=== PATIENT | male | born 2000 | race Caucasian/White ===

== ENCOUNTER 2020-01-15 10:31 | Outpatient (CLI) | payer SELFPAY | END 2020-01-15 10:32 | disposition EMS.NT | LOC: EMS 10:31 | PROVIDERS: ATTEND Surgery | DX: F41.9 Anxiety disorder, unspecified (principal) ==

== ENCOUNTER 2020-03-14 18:12 | Emergency (ER) | payer OTHER ==
[2020-03-14 18:22] VITALS: BP 143/92
--- NOTE | 2020-03-14 19:04 | XRAY Report ---
PROCEDURE: Foot 2 View LT INDICATIONS: TRAUMA TECHNIQUE: 2 views of the foot were acquired. COMPARISON: None FINDINGS: Bones: No fractures or dislocations. No suspicious bony lesions. Soft tissues: No tibiotalar joint effusion. Achilles tendon appears normal. IMPRESSION: No acute fracture. No osseous lesion. If symptoms and/or clinical suspicion for pathology continue, f urther assessment with repeat plain films, or advanced imaging (e.g., CT, MRI, or bone scan) is recom mended for further assessment. Reviewed by: Nick Prater MD on 03/14/2020 7:02 PM PST Approved by: Nick Prater MD on 03/14/2020 7:02 PM PST Station ID: [id number]
--- NOTE | 2020-03-14 19:44 | ED Physician Documentation ---
History of Present Illness - Stated complaint Stated Complaint: LT TOE INJ - Chief complaint Chief Complaint: Trauma Ext - Additonal information Additional information: 19-year-old male presents to the emergency department for evaluation of acute toe pain. He was working out on a punching bag and was kicking of the bag as well however after the fourth or fifth Cook he accidentally hit a chair nearby. He has pain in the distal index middle and ring toes. No swelling or deformity but difficulty bearing weight. No history of previous injury to this foot Review of Systems Constitutional: reports: Reviewed and negative Ears: reports: Reviewed and negative Nose: reports: Reviewed and negative Throat: reports: Reviewed and negative Respiratory: reports: Reviewed and negative GI: reports: Reviewed and negative : reports: Reviewed and negative Skin: reports: Reviewed and negative Musculoskeletal: reports: Extremity pain (left foot) Neurologic: reports: Reviewed and negative PD PAST MEDICAL HISTORY - Past Medical History Past Medical History: No - Past Surgical History Past Surgical History: No - Present Medications Home Medications: Ambulatory Orders Medication Instructions Recorded Confirmed Ibuprofen [Motrin] 600 mg PO Q6H PRN #30 tab 03/14/20 - Allergies Allergies/Adverse Reactions: Allergies Allergy/AdvReac Type Severity Reaction Status Date / Time No Known Drug Allergies Allergy Verified 03/14/20 18:19 - Social History Does the pt smoke?: No Smoking Status: Never smoker Does the pt drink ETOH?: Yes Does the pt have substance abuse?: No - Immunizations Immunizations are current?: Yes - POLST Patient has POLST: No PD ED PE EXPANDED - Extremities Extremities: Left foot (Tenderness in the phalanx of the index middle and ring toes without deformity or swelling. Patient able to bear nearly full weight on the left foot. 2+ distal DP pulse.) Results - Vitals Vitals: Vital Signs - 24 hr 03/14/20 18:19 Temperature 36.5 C Heart Rate 78 Respiratory 16 Rate Blood Pressure 143/92 H O2 Saturation 96 Oxygen O2 Source Room air - Rads (name of study) left foot Radiology: Prelim report reviewed, Final report received PD MEDICAL DECISION MAKING - ED course Complexity details: reviewed results, re-evaluated patient ED course: 19-year-old male presents the emergency department for evaluation of acute left foot pain. He accidentally kicked a chair when working out with his punching bag. He has pain in the index, middle and ring toes without acute deformity. Able to bear nearly full weight. X-ray does not show acute fracture or dislocation. At this time I favor contusion versus occult fracture. Patient will be recommended to take ibuprofen or Tylenol for pain and to ice the foot. Return to the emergency department if not markedly better in 7 to 10 days for repeat imaging. Departure - Departure Disposition: 01 Home, Self Care Clinical Impression: Left foot pain Condition: Stable Record reviewed to determine appropriate education?: Yes Instructions: ED Contusion Lower Ext Prescriptions: Ibuprofen [Motrin] 600 mg PO Q6H PRN #30 tab PRN Reason: Pain Comments: You were seen in the emergency department for your foot and toe pain after accidentally kicking a chair while working out with your punching bag. The x- ray does not show any broken bones. At this time you likely have a contusion or bruising in the soft tissues. This typically gets better over 7 to 10 days. I do recommend that you ice the foot where it is painful. I would also recommend that you take ibuprofen for discomfort. If pain not markedly better in 7 to 10 days your foot should be flavia-rayed to rule out any occult fractures.
== END 2020-03-14 19:51 | disposition home or self-care (01) ==
LOC: ED 18:12
DX: M79.675 Pain in left toe(s) (principal); W22.03XA Walked into furniture, initial encounter; Y93.A9 Activity, other involving cardiorespiratory exercise
CPT/HCPCS: 99281; 99283

== ENCOUNTER 2020-11-06 17:25 | Emergency (ER) | payer OTHER ==
[2020-11-06 17:44] VITALS: BP 143/91
--- NOTE | 2020-11-06 17:47 | ED Physician Documentation ---
History of Present Illness - Stated complaint Stated Complaint: DOG BITE - Chief complaint Chief Complaint: Laceration - History obtained from History obtained from: Patient - Additonal information Additional information: Pt was out running when he was bit by his neighbors small dog. He was bit on the left buttocks and left index finger and both thighs. Dog is fully vaccinated. Pt unsure of last td. Review of Systems Ten Systems: 10 systems reviewed and negative Constitutional: reports: Reviewed and negative Throat: reports: Reviewed and negative Cardiac: reports: Reviewed and negative Respiratory: reports: Reviewed and negative : reports: Reviewed and negative Skin: reports: Bite / sting Musculoskeletal: reports: Reviewed and negative Neurologic: reports: Reviewed and negative Psychiatric: reports: Reviewed and negative Endocrine: reports: Reviewed and negative Immunocompromised: reports: Reviewed and negative PD PAST MEDICAL HISTORY - Past Surgical History Past Surgical History: No - Present Medications Home Medications: Ambulatory Orders Medication Instructions Recorded Confirmed Ibuprofen [Motrin] 600 mg PO Q6H PRN #30 tab 03/14/20 - Allergies Allergies/Adverse Reactions: Allergies Allergy/AdvReac Type Severity Reaction Status Date / Time No Known Drug Allergies Allergy Verified 11/06/20 17:44 - Social History Does the pt smoke?: No Smoking Status: Never smoker Does the pt drink ETOH?: Yes Does the pt have substance abuse?: No - Immunizations Immunizations are current?: Yes - POLST Patient has POLST: No PD ED PE NORMAL - Vitals Vital signs reviewed: Yes - General General: Alert and oriented X 3, No acute distress, Well developed/nourished - HEENT HEENT: Atraumatic, Pharynx benign - Neck Neck: Supple, no meningeal sign, No JVD - Cardiac Cardiac: RRR, No murmur - Respiratory Respiratory: No respiratory distress, Clear bilaterally - Abdomen Abdomen: Normal bowel sounds - Derm Derm: Normal color, Other (Several superficial abrasions and punctures on the thighs and left hand and a 2 x 2 centimeter by 2 cm puncture bite on the left buttocks.) - Neuro Neuro: Alert and oriented X 3, No motor deficit, No sensory deficit, Normal speech Eye Opening: Spontaneous Motor: Obeys Commands Verbal: Oriented GCS Score: 15 - Psych Psych: Normal mood, Normal affect Results - Vitals Vitals: Vital Signs - 24 hr 11/06/20 17:30 Temperature 36.7 C Heart Rate 97 Respiratory 16 Rate Blood Pressure 143/91 H O2 Saturation 99 Oxygen O2 Source Room air PD MEDICAL DECISION MAKING - ED course Complexity details: d/w patient ED course: pt presented after dog bite. He has several superficial bites and scratches on his left hand and both thighs and a larger puncture on the left buttocks. We cleaned and irrigated all wounds and I placed 2 running sutures in the left buttocks wound to close it loosely, after thorough irrigation. The wounds were cleaned and dressed and did not require suture repair. Given location and superficiality of other wounds I do not feel antibiotic prophylaxis is necessary at this time. Advised the patient to keep the wound clean with soap and water and keep dry, avoid soaking such as Using hot tub until wounds are healed. He was advised to the sutures removed from the buttocks none in 5 to 7 days. I reviewed return precautions if there are signs infection such as redness, swelling, purulent drainage, fever or otherwise new concerns. The dog that bit the patient is up-to-date on vaccines Rabies would be unlikely as this was a provoked attack. The patient is unsure of last tetanus and deliberated for quite some time but then did decide to get the tetanus vaccine today. His TD was updated. Departure - Departure Disposition: 01 Home, Self Care Clinical Impression: Dog bite, Puncture wound Condition: Good Instructions: ED Wound Puncture General, ED Wound Care Comments: You presented after a dog bite and have several puncture almonte. We placed 2 sutures in the right buttocks. These can come out in 5 to 7 days and he may go to any clinic or urgent care to have them taken out. Keep wounds clean with regular soap and water and avoid soaking such as swimming, hot tub or swimming pool until wounds are healed. Monitor for signs of infection such as redness, swelling, purulent drainage and if these were to occur we would want you to be seen in the hospital or urgent care. We did update your tetanus shot today.
[2020-11-06] MEDS ORDERED: LIDOCAINE 1% 2 ML VIAL SUBQ STA (17:57)
[2020-11-06] MEDS ORDERED: TETANUS/DIPHTHERIA/PERTUSSIS 0.5 ML SYRINGE IM ONE (18:26)
== END 2020-11-06 18:50 | disposition home or self-care (01) ==
LOC: ED 17:25
DX: S60.572A Other superficial bite of hand of left hand, initial encounter (principal); S70.372A Other superficial bite of left thigh, initial encounter; S70.371A Other superficial bite of right thigh, initial encounter; S31.825A Open bite of left buttock, initial encounter; W54.0XXA Bitten by dog, initial encounter; Y93.02 Activity, running; Y92.488 Other paved roadways as the place of occurrence of the external cause; Z23 Encounter for immunization
CPT/HCPCS: 12001; 90471; 99282; 99283

== ENCOUNTER 2022-05-04 07:50 | Outpatient (CLI) | payer OTHER ==
--- NOTE | 2022-05-04 10:48 | XRAY Report ---
PROCEDURE: Ankle 3 View RT INDICATIONS: SPRAIN OF OTHER LIGAMENT OF RIGHT ANKLE TECHNIQUE: 3 views of the ankle were acquired. COMPARISON: None FINDINGS: Bones: No acute fractures or dislocations. Ankle mortise is normally aligned. No suspicious bony l esions. Soft tissues: Soft tissue edema is seen over the lateral malleolus. IMPRESSION: Nonspecific subtle tissue edema over the lateral malleolus. No acute osseous abnormality. If there is clinical concern or persistent symptoms, additional imaging such as repeat radiographs o r advanced imaging (e.g. CT, MRI) may be helpful for further evaluation. Reviewed by: Todd Kramer MD on 05/04/2022 10:46 AM PDT Approved by: Todd Kramer MD on 05/04/2022 10:46 AM PDT Station ID: [id number]
== END 2022-05-04 07:51 | disposition home or self-care (01) ==
LOC: DI 07:50
PROVIDERS: ATTEND Family Medicine
DX: S93.491A Sprain of other ligament of right ankle, initial encounter (principal); R60.0 Localized edema

== ENCOUNTER 2023-10-04 17:03 | Outpatient (CLI) | payer BC ==
--- NOTE | 2023-10-05 13:57 | XRAY Report ---
PROCEDURE: Knee 3V RT INDICATIONS: INTERNAL DERANGEMENT OF R KNEE TECHNIQUE: 3 views of the knee were acquired. COMPARISON: None. FINDINGS: Bones: No acute fractures or dislocations. No suspicious bony lesions. Joint spaces are maintaine d. Soft tissues: Small knee joint effusion. No suspicious soft tissue calcifications or masses. IMPRESSION: Small joint effusion. No acute osseous abnormality. If symptoms persist or there is continued clinica l concern, further evaluation with MRI may be helpful. Reviewed by: Todd Kramer MD on 10/05/2023 1:56 PM PDT Approved by: Todd Kramer MD on 10/05/2023 1:56 PM PDT Station ID: [id number]
== END 2023-10-04 17:04 | disposition home or self-care (01) ==
LOC: DI 17:03
PROVIDERS: ATTEND Family Medicine
DX: M25.461 Effusion, right knee (principal); M23.91 Unspecified internal derangement of right knee